=== PATIENT | male | born 1975 | race Caucasian/White ===

== ENCOUNTER 2019-10-08 08:54 | Emergency (ER) | payer BC ==
[2019-10-08 09:27] LABS: ABS Basophils 0.1 10^3/ul (0-0.2); ABS Monocytes 0.3 10^3/ul (0-0.8); Eosinophil % 0.2 %; Hematocrit 44 % (42-52); Hemoglobin 15.7 g/dL (14.0-18.0); Lymphocyte % 15.2 %; Mean Corpuscular HGB Conc 35 g/dL (31-36); Mean Corpuscular Hemoglobin 31 pg (27-31); Mean Corpuscular Volume 89 fL (80-94); Mean Platelet Volume 8.1 fL (7.4-10.4); Platelet Count 255 10^3/uL (150-450); Red Blood Count 5.01 10^6 /uL (4.18-5.48); Red Cell Distribution Width 13 % (10-15); White Blood Count 6.4 10^3/uL (3.5-10.8)
[2019-10-08] MEDS ORDERED: NS 0.9% 1000 ML** 1,000 ML IV ONE (09:32)
[2019-10-08] MEDS ORDERED: Aspirin 81 mg CHEW TAB* 81 MG TAB.CHEW PO ONE (09:32)
[2019-10-08] MEDS ORDERED: Nitroglycerin TAB 0.4 MG* 0.4 MG TAB SL ONE (09:33)
--- NOTE | 2019-10-08 09:34 | ED ---
HPI Chest Pain - HPI Summary HPI Summary: This patient is a 44 year old M with a history of PE and varicose veins brought to ED via EMS with a chief complaint of intermittent chest pain since one hour ago. Patient was shoveling snow when the chest pain started. He sat down, which helped alleviate the pain somewhat, so he started working again and the pain returned. He also reports having numbness in the right arm during the episode. 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 Patient describes the pain as a lot of pressure and as if his heart was going to come out of his chest. The pain radiated to the back but not his jaw. Patient reports mild shortness of breath and diaphoresis, but he attributes the sweating to the physical exertion of sweating. Patient denies nausea, abdominal pain. He is not taking blood thinners and has no history of heart attack of stents. He has never had chest pain with exertions like this before. The patient rates the pain 5/10 in severity. Symptoms aggravated by nothing. Symptoms alleviated by resting. - History of Current Complaint Chief Complaint: EDChestPainROMI Time Seen by Provider: 10/08/19 09:05 Hx Obtained From: Patient Onset/Duration: Started Hours Ago - 0800 this morning, Still Present Time of Onset: 08:00 Timing: Intermittent Initial Severity: Moderate Current Severity: Moderate Pain Intensity: 5 Pain Scale Used: 0-10 Numeric Chest Pain Radiates: Yes Chest Pain Radiates To:: Back Character: Pressure/Squeezing Aggravating Factor(s): Nothing Alleviating Factor(s): Rest Associated Signs and Symptoms: Positive: Chest Pain, Numbness - Right arm, Shortness of Breath, Diaphoresis. Negative: Nausea, Vomiting - Allergy/Home Medications Allergies/Adverse Reactions: Allergies Allergy/AdvReac Type Severity Reaction Status Date / Time LU APPLE Allergy Rash Uncoded 08/08/15 07:47 Home Medications: Home Medications Acetaminophen TAB* [Tylenol TAB*] 325 mg PO Q4H PRN 10/08/19 [History Confirmed 10/08/19] Horny Goat [place] 1 tab PO DAILY 10/08/19 [History Confirmed 10/08/19] L.acidoph,Paracasei, B.lactis [Probiotic] 1 each PO DAILY 10/08/19 [History Confirmed 10/08/19] PMH/Surg Hx/FS Hx/Imm Hx Endocrine/Hematology History: Denies: Hx Diabetes, Hx Thyroid Disease Cardiovascular History: Reports: Hx Hypertension - NO MEDICATION FOR- PATIENT STATES TO SEE PRIMARY MD FOR Respiratory History: Reports: Hx Pulmonary Embolism - 2002, Hx Sleep Apnea Denies: Hx Asthma, Hx Chronic Obstructive Pulmonary Disease (COPD) GI History: Denies: Hx Ulcer Sensory History: Reports: Hx Contacts or Glasses - INSTRUCTS GIVEN Denies: Hx Hearing Aid Opthamlomology History: Reports: Hx Contacts or Glasses - INSTRUCTS GIVEN Psychiatric History: Reports: Hx Depression - IN THE PAST - Surgical History Surgery Procedure, Year, and Place: VARICOSE VEINS LEFT LEG-[place] Hx Anesthesia Reactions: No Infectious Disease History: No Infectious Disease History: Denies: Hx Clostridium Difficile, Hx Hepatitis, Hx Human Immunodeficiency Virus (HIV), Hx of Known/Suspected MRSA, Hx Shingles, Hx Tuberculosis, Hx Known/ Suspected VRE, Hx Known/Suspected VRSA, History Other Infectious Disease, Traveled Outside the [place] in Last 30 Days - Family History Known Family History: Positive: Other - No FHx of varicose vein, phlebitis, leg ulcers, or DVT. - Social History Alcohol Use: Occasionally Hx Substance Use: No Substance Use Type: Reports: None Hx Tobacco Use: Yes Smoking Status (MU): Current Every Day Smoker Type: Cigars Amount Used/How Often: CIGARS ON OCCASION- X 2 YEARS Have You Smoked in the Last Year: Yes Review of Systems Positive: Chest Pain - radiates to back Positive: Shortness Of Breath Negative: Abdominal Pain, Nausea Neurological: Other - Right arm numbness All Other Systems Reviewed And Are Negative: Yes Physical Exam - Summary Physical Exam Summary: Constitutional: Well-developed, Well-nourished, Alert. (-) Distressed Skin: Warm, Dry HENT: Normocephalic; Atraumatic Eyes: Conjunctiva normal Neck: Musculoskeletal ROM normal neck. (-) JVD, (-) Stridor, (-) Tracheal deviation Cardio: Rhythm regular, rate normal, Heart sounds normal; Intact distal pulses; The pedal pulses are 2+ and symmetric. Radial pulses are 2+ and symmetric. (-) Murmur Pulmonary/Chest wall: Effort normal. (-) Respiratory distress, (-) Wheezes, (-) Rales Abd: Soft, (-) tenderness, (-) Distension, (-) Guarding, (-) Rebound Musculoskeletal: (-) Edema Lymph: (-) Cervical adenopathy Neuro: Alert, Oriented x3 Psych: Mood and affect Normal Triage Information Reviewed: Yes Vital Signs On Initial Exam: Initial Vitals Temp Pulse Resp BP Pulse Ox 98.2 F 75 18 168/116 97 10/08/19 08:58 10/08/19 08:58 10/08/19 08:58 10/08/19 08:58 10/08/19 08:58 Vital Signs Reviewed: Yes Procedures - Sedation Patient Received Moderate/Deep Sedation with Procedure: No Diagnostics - Vital Signs Vital Signs Temp Pulse Resp BP Pulse Ox 10/08/19 09:01 77 98 10/08/19 08:59 80 168/116 96 10/08/19 08:58 98.2 F 75 18 168/116 97 - Laboratory Result Diagrams: 10/08/19 09:17 10/08/19 09:17 Lab Statement: Any lab studies that have been ordered have been reviewed, and results considered in the medical decision making process. - Radiology CXR Radiology Interpretation Completed By: Radiologist Summary of Radiographic Findings: No acute pulmonary or cardiac process evident. Dr. Nazario has reviewed this radiology report. - EKG 09 Cardiac Rate: NL - 81 BPM EKG Rhythm: Sinus Rhythm Summary of EKG Findings: An EKG at 09 revealed NSR at 81 BPM, no ischemic changes. Dr. Nazario has reviewed and interpreted this EKG. Re-Evaluation - Re-Evaluation First Eval Re-Evaluation Time: 12:58 Comment: No evidence of ACS. Patient feeling better. Discussed results with patient. Patient will be discharged home with dx of chest pain. Patient understands and agrees with this plan. Chest Pain Course/Dx - Course Course Of Treatment: This patient is a 44 year old M with a history of PE and varicose veins brought to ED via EMS with a chief complaint of intermittent chest pain since one hour ago. In the ED course patient received aspirin, NTG, Tylenol, and fluids. An EKG at 0913 revealed NSR at 81 BPM, no ischemic changes. Blood work revealed glucose 101, no other abnormalities. First troponin at 0917 was 0.01. CXR revealed: No acute pulmonary or cardiac process evident. Second troponin at 1158 was 0.00. Discussed results with patient. Patient will be discharged home with dx of chest pain. Patient understands and agrees with this plan. - Diagnoses Provider Diagnoses: Chest pain Discharge ED - Sign-Out/Discharge Documenting (check all that apply): Patient Departure - Discharge - Discharge Plan Condition: Stable Disposition: HOME Patient Education Materials: Chest Pain (ED) Referrals: Santosh Bowen MD [Primary Care Provider] - 2 Days Additional Instructions: Please follow-up with your primary care physician in 1-2 days. PLEASE RETURN TO THE ER FOR WORSENING OR CHANGING SYMPTOMS. It was a pleasure taking care of you today. - Billing Disposition and Condition Condition: STABLE Disposition: Home - Attestation Statements Document Initiated by Sam: Yes Documenting Scribe: Wallace Bauer Provider For Whom Sam is Documenting (Include Credential): Jason Nazario DO Scrib[place]il Attestation: Wallace Gross scribed for Jason Nazario DO on 10/08/19 at 1338. Scribe Documentation Reviewed: Yes Provider Attestation: The documentation as recorded by the Wallace parker accurately reflects the service I personally performed and the decisions made by Jason harris DO Status of [place] Document: Viewed
[2019-10-08 09:44] LABS: Albumin 4.4 g/dL (3.2-5.2); Albumin/Globulin Ratio 1.4 (1-3); BUN/Creatinine Ratio 19.1 (8-20); Calcium 9.5 mg/dL (8.6-10.3); EGFR African American 111.8 (>60); EGFR Non-African American 92.4 (>60); Globulin 3.1 g/dL (2-4); Total Protein 7.5 g/dL (6.4-8.9)
[2019-10-08 09:45] LABS: Troponin I 0.01 ng/mL (<0.03)
[2019-10-08] MEDS ORDERED: Acetaminophen TAB* 325 MG PO ONE (10:44)
[2019-10-08 13:16] VITALS: BP 144/97
== END 2019-10-08 13:15 | disposition home or self-care (01) ==
LOC: ED 08:54
DX: R07.89 Other chest pain (principal); R20.0 Anesthesia of skin; R06.02 Shortness of breath; R61 Generalized hyperhidrosis; I10 Essential (primary) hypertension; Z86.711 Personal history of pulmonary embolism; Z91.018 Allergy to other foods; F17.290 Nicotine dependence, other tobacco product, uncomplicated
CPT/HCPCS: 36415; 71045; 80053; 83605; 84484; 85025; 93005; 96360; 96361; 99284; A9270-GY